=== PATIENT | male | born 1960 | race Caucasian/White ===

== ENCOUNTER → 2016-11-21 | Outpatient (CLI) | payer MEDICARE, BC ==
[2014-11-20 10:50] VITALS: BP 176/97
[~2016-11-21] MED LIST: AEROCHAMBER PLU; AMOXICILLIN 8751 TAB PO; CLINDAMYCIN300 MG PO; CLOBETASOL PROP0.055 TP; COUMADIN6 MG; CYCLOBENZAPRINE10 MG PO; DIFLUCAN200 MG PO; EUTHYROX PO; FUROSEMIDE; HCTZ 25MG25 MG PO; HUMALOG MIX 75/10 ML SC; HUMALOG100 U/ML; LANTUS PEN100 U/ML SQ; LANTUS100 U/ML SC; LEVOTHYROXIN0.125 MG; LEVOTHYROXINE0.2 MG PO; LISINOPRIL20 MG PO; LORATADINE10 MG; MORPHINE 1515 MG/TAB; MORPHINE SULFAT PO; MS CONTIN 115 MG/TAB PO; MSIR15 MG PO; SINGULAIR10 MG PO; VALTREX1 GM; VENTOLIN0.09 MG IH
== END ==
LOC: LAB 10:06
DX: E11.9 Type 2 diabetes mellitus without complications (principal); E03.4 Atrophy of thyroid (acquired); Z12.5 Encounter for screening for malignant neoplasm of prostate; E78.2 Mixed hyperlipidemia; N52.03 Combined arterial insufficiency and corporo-venous occlusive erectile dysfunction; R20.2 Paresthesia of skin; K90.89 Other intestinal malabsorption

== ENCOUNTER → 2016-11-24 | Outpatient (CLI) | payer MEDICARE, BC ==
[2014-11-20 10:50] VITALS: BP 176/97
== END ==
LOC: LAB 11:23
DX: Z12.11 Encounter for screening for malignant neoplasm of colon (principal)

== ENCOUNTER → 2017-04-05 | Outpatient (CLI) | payer MEDICARE, BC ==
[2014-11-20 10:50] VITALS: BP 176/97
== END ==
LOC: LAB 10:34
DX: Z79.01 Long term (current) use of anticoagulants (principal)

== ENCOUNTER → 2017-08-20 | Outpatient (CLI) | payer MEDICARE, BC ==
[2014-11-20 10:50] VITALS: BP 176/97
[2017-08-20 11:22] LABS: BASO # 0.1 (0.02-0.10); EOS # 0.3 (0.04-0.40); EOS % 3.1 % (0.0-4.0); HEMATOCRIT 51.9 % (42.0-52.0); HEMOGLOBIN 17.9 g/dL (13.5-18.0); LYMPH# 1.4 (1.50-4.00); MEAN CELL VOLUME 82 fl (78-100); MEAN CORPUSCULAR HEMOGLOBIN 28 pg (27-31); MEAN CORPUSCULAR HGB CONC 35 g/dL (33-37); MEAN PLATELET VOLUME 9.2 fl (7.4-10.4); MONO # 0.8 (0.20-0.80); PLATELET COUNT 211 K/mm3 (130-400); RED BLOOD COUNT 6.33 M/mm3 (4.20-5.60); RED CELL DISTRIBUTION WIDTH 14.3 % (11.5-14.5); WHITE BLOOD COUNT 9.7 K/mm3 (4.8-10.8)
[2017-08-20 11:31] LABS: ALBUMIN 4.4 g/dL (3.5-5.0); BUN/CREATININE RATIO 15.6 (6.0-26.0); CALCIUM 9.6 mg/dL (8.4-10.2); POTASSIUM 4.5 mmol/L (3.6-5.0); TOTAL BILIRUBIN 1.1 mg/dL (0.2-1.3); TOTAL PROTEIN 8.1 g/dL (6.3-8.2)
[2017-08-20 12:25] LABS: ERYTHROCYTE SEDIMENTATION RATE 3 mm/hr (0-20)
== END ==
LOC: LAB 10:39
PROVIDERS: Internal Medicine
DX: E11.9 Type 2 diabetes mellitus without complications (principal); K90.49 Malabsorption due to intolerance, not elsewhere classified; E03.4 Atrophy of thyroid (acquired); C41.4 Malignant neoplasm of pelvic bones, sacrum and coccyx; R20.2 Paresthesia of skin

== ENCOUNTER → 2017-11-09 | Outpatient (CLI) | payer MEDICARE, BC ==
[2014-11-20 10:50] VITALS: BP 176/97
== END ==
LOC: LAB 10:42
DX: Z85.830 Personal history of malignant neoplasm of bone (principal)

== ENCOUNTER → 2017-12-28 | Outpatient (CLI) | payer MEDICARE, BC ==
[2014-11-20 10:50] VITALS: BP 176/97
== END ==
LOC: RAD 09:45
DX: M18.12 Unilateral primary osteoarthritis of first carpometacarpal joint, left hand (principal); M19.042 Primary osteoarthritis, left hand

== ENCOUNTER → 2018-01-29 | Outpatient (CLI) | payer MEDICARE, BC ==
[2014-11-20 10:50] VITALS: BP 176/97
[2018-01-29 16:27] LABS: ALBUMIN 4.4 g/dL (3.5-5.0); BUN/CREATININE RATIO 13.8 (6.0-26.0); CALCIUM 8.8 mg/dL (8.4-10.2); POTASSIUM 4.4 mmol/L (3.6-5.0); TOTAL BILIRUBIN 0.7 mg/dL (0.2-1.3); TOTAL PROTEIN 8.2 g/dL (6.3-8.2)
== END ==
LOC: LAB 15:50
PROVIDERS: Internal Medicine
DX: E11.9 Type 2 diabetes mellitus without complications (principal); E78.2 Mixed hyperlipidemia

== ENCOUNTER → 2018-03-05 | Outpatient (CLI) | payer MEDICARE, BC ==
[~2018-03-05] VITALS: Ht 180.3 cm; Wt 135.9 kg
[2018-03-05 14:52] VITALS: BP 152/77
== END ==
LOC: AMSURD 14:43
DX: M79.661 Pain in right lower leg (principal); R22.41 Localized swelling, mass and lump, right lower limb; Z86.718 Personal history of other venous thrombosis and embolism; Z51.81 Encounter for therapeutic drug level monitoring
CPT/HCPCS: J1650

== ENCOUNTER → 2018-04-13 | Outpatient (CLI) | payer MEDICARE, BC ==
[2018-03-05 14:52] VITALS: BP 152/77
== END ==
LOC: RAD 09:29
DX: M19.072 Primary osteoarthritis, left ankle and foot (principal); M77.32 Calcaneal spur, left foot

== ENCOUNTER → 2018-06-16 | Emergency (ER) | payer MEDICARE, BC ==
[~2018-06-16] MED LIST changes: +ASPIRIN 81M81 MG/TA2 PO; +ATORVASTATIN CA20 MG PO; +CEPHALEXIN500 M1 PO
[2018-06-16 08:40] VITALS: BP 145/75
[2018-06-16 09:27] LABS: EOS # 0.3 (0.04-0.40); EOS % 4.4 % (0.0-4.0); HEMATOCRIT 44.2 % (42.0-52.0); HEMOGLOBIN 15.3 g/dL (13.5-18.0); LYMPH# 1.2 (1.50-4.00); MEAN CELL VOLUME 85 fl (78-100); MEAN CORPUSCULAR HEMOGLOBIN 29 pg (27-31); MEAN CORPUSCULAR HGB CONC 35 g/dL (33-37); MONO # 0.6 (0.20-0.80); NEU # 5.1 (1.40-6.50); PLATELET COUNT 200 K/mm3 (130-400); RED BLOOD COUNT 5.23 M/mm3 (4.20-5.60); RED CELL DISTRIBUTION WIDTH 14.4 % (11.5-14.5); WHITE BLOOD COUNT 7.3 K/mm3 (4.8-10.8)
[2018-06-16 09:38] LABS: CALCIUM 8.8 mg/dL (8.4-10.2); POTASSIUM 4.3 mmol/L (3.6-5.0); PROTHROMBIN TIME 24.2 SECONDS (9.0-12.0)
== END | disposition home or self-care (01) ==
LOC: ED 08:26
PROVIDERS: Family Medicine
DX: L30.9 Dermatitis, unspecified (principal); Z87.2 Personal history of diseases of the skin and subcutaneous tissue; E11.9 Type 2 diabetes mellitus without complications; Z79.4 Long term (current) use of insulin; Z79.01 Long term (current) use of anticoagulants; Z79.82 Long term (current) use of aspirin; Z79.899 Other long term (current) drug therapy; E03.9 Hypothyroidism, unspecified; I89.0 Lymphedema, not elsewhere classified

== ENCOUNTER → 2018-09-05 | Outpatient (CLI) | payer MEDICARE, BC ==
[2018-06-16 08:40] VITALS: BP 145/75
[2018-09-05 11:38] LABS: BASO # 0.1 (0.02-0.10); EOS # 0.3 (0.04-0.40); EOS % 3.5 % (0.0-4.0); HEMATOCRIT 47.5 % (42.0-52.0); HEMOGLOBIN 16.5 g/dL (13.5-18.0); LYMPH# 1.4 (1.50-4.00); MEAN CELL VOLUME 83 fl (78-100); MEAN CORPUSCULAR HEMOGLOBIN 29 pg (27-31); MEAN CORPUSCULAR HGB CONC 35 g/dL (33-37); MONO # 0.7 (0.20-0.80); NEU # 4.7 (1.40-6.50); PLATELET COUNT 206 K/mm3 (130-400); RED CELL DISTRIBUTION WIDTH 14.8 % (11.5-14.5); WHITE BLOOD COUNT 7.1 K/mm3 (4.8-10.8)
[2018-09-05 11:55] LABS: ALBUMIN 4.2 g/dL (3.5-5.0); CALCIUM 9.4 mg/dL (8.4-10.2); TOTAL BILIRUBIN 0.9 mg/dL (0.2-1.3); TOTAL PROTEIN 7.2 g/dL (6.3-8.2)
[2018-09-05 12:53] LABS: ERYTHROCYTE SEDIMENTATION RATE 3 mm/hr (0-20)
== END ==
LOC: LAB 11:17
PROVIDERS: Internal Medicine
DX: C41.9 Malignant neoplasm of bone and articular cartilage, unspecified (principal); E11.9 Type 2 diabetes mellitus without complications; E78.2 Mixed hyperlipidemia; K90.9 Intestinal malabsorption, unspecified

== ENCOUNTER → 2019-01-13 | Outpatient (CLI) | payer MEDICARE, BC ==
[2018-06-16 08:40] VITALS: BP 145/75
== END ==
LOC: RAD 08:43 → VAS 08:43
DX: M79.604 Pain in right leg (principal); Z86.79 Personal history of other diseases of the circulatory system

== ENCOUNTER 2019-04-15 23:48 | Inpatient (IN) | payer MEDICARE, BC ==
[~2019-04-15] VITALS: Ht 182.9 cm; Wt 136.2 kg
[~2019-04-15 23:48] MED LIST changes: +COUMADIN 6MG6 MG/TAB PO; -COUMADIN6 MG; +NOVOLOG FLEX100 U/ML SQ; +PREDNISOLONE AC15 ML OP; +VALTREX1 GM PO
[2019-04-16] VITALS (7 sets, daily range): BP systolic 110–165; BP diastolic 66–80
[2019-04-16] MEDS ORDERED: NORCO 325 MG-7.1 TA1 PO (01:35)
[2019-04-16 06:29] LABS: BASO # 0.1 (0.02-0.10); EOS # 0.3 (0.04-0.40); EOS % 3.3 % (0.0-4.0); HEMATOCRIT 43.9 % (42.0-52.0); HEMOGLOBIN 14.7 g/dL (13.5-18.0); LYMPH# 1.9 (1.50-4.00); MEAN CELL VOLUME 86 fl (78-100); MEAN CORPUSCULAR HEMOGLOBIN 29 pg (27-31); MEAN CORPUSCULAR HGB CONC 34 g/dL (33-37); MEAN PLATELET VOLUME 9.2 fl (7.4-10.4); MONO # 1.1 (0.20-0.80); NEU # 6.2 (1.40-6.50); PLATELET COUNT 195 K/mm3 (130-400); RED CELL DISTRIBUTION WIDTH 15.2 % (11.5-14.5); WHITE BLOOD COUNT 9.7 K/mm3 (4.8-10.8)
[2019-04-17 03:06] VITALS: BP 109/57
[2019-04-17 06:20] VITALS: BP 128/74
[2019-04-17 06:53] LABS: BASO # 0.1 (0.02-0.10); EOS # 0.4 (0.04-0.40); EOS % 4.2 % (0.0-4.0); HEMATOCRIT 43.8 % (42.0-52.0); HEMOGLOBIN 14.6 g/dL (13.5-18.0); LYMPH# 1.7 (1.50-4.00); MEAN CELL VOLUME 86 fl (78-100); MEAN CORPUSCULAR HEMOGLOBIN 29 pg (27-31); MEAN CORPUSCULAR HGB CONC 33 g/dL (33-37); MEAN PLATELET VOLUME 9.5 fl (7.4-10.4); MONO # 0.8 (0.20-0.80); NEU # 5.7 (1.40-6.50); PLATELET COUNT 164 K/mm3 (130-400); RED CELL DISTRIBUTION WIDTH 15.4 % (11.5-14.5); WHITE BLOOD COUNT 8.6 K/mm3 (4.8-10.8)
[2019-04-17 06:59] LABS: POTASSIUM 4.4 mmol/L (3.5-5.1)
[2019-04-17 07:00] LABS: CALCIUM 8.6 mg/dL (8.3-10.5)
[2019-04-17] MEDS ORDERED: CLEOCIN HCL300 MG PO (09:07)
[2019-04-17 09:47] LABS: PROTHROMBIN TIME 19.1 SECONDS (9.0-12.0)
== END 2019-04-17 11:09 | disposition home or self-care (01) | DRG 603 ==
LOC: MED/SURG 23:48
PROVIDERS: Nurse Practitioner Primary Care; Physician Assistant; ADMIT Nurse Practitioner Family
DX: L03.115 Cellulitis of right lower limb (principal); I89.0 Lymphedema, not elsewhere classified; E11.42 Type 2 diabetes mellitus with diabetic polyneuropathy; E11.65 Type 2 diabetes mellitus with hyperglycemia; I10 Essential (primary) hypertension; G47.33 Obstructive sleep apnea (adult) (pediatric); E03.9 Hypothyroidism, unspecified; Z79.82 Long term (current) use of aspirin; Z79.01 Long term (current) use of anticoagulants; Z79.4 Long term (current) use of insulin; Z86.718 Personal history of other venous thrombosis and embolism; Z86.711 Personal history of pulmonary embolism; Z92.3 Personal history of irradiation; Z86.14 Personal history of Methicillin resistant Staphylococcus aureus infection; Z88.5 Allergy status to narcotic agent; Z88.8 Allergy status to other drugs, medicaments and biological substances
CPT/HCPCS: A4216; J0696; J1815; J7030

== ENCOUNTER → 2019-04-18 | Outpatient (CLI) | payer MEDICARE, BC ==
[~2019-04-18] MED LIST changes: +CLEOCIN HCL300 MG PO; +NORCO 325 MG-7.1 TA1 PO
[2019-04-18 14:57] VITALS: BP 150/71
== END ==
LOC: LAB 15:04
PROVIDERS: Internal Medicine
DX: L03.115 Cellulitis of right lower limb (principal); I82.409 Acute embolism and thrombosis of unspecified deep veins of unspecified lower extremity

== ENCOUNTER 2019-04-19 14:44 | Outpatient (RCR) | payer MEDICARE, BC ==
[2019-04-18 14:57] VITALS: BP 150/71
[~2019-04-19] VITALS: Ht 182.9 cm; Wt 136.2 kg
[2019-04-19 14:53] VITALS: BP 153/73
== END 2019-04-19 15:20 | disposition home or self-care (01) ==
LOC: AMSURD 14:44
DX: L03.115 Cellulitis of right lower limb (principal)
CPT/HCPCS: J0696

== ENCOUNTER → 2019-04-19 | Outpatient (CLI) | payer MEDICARE, BC ==
[2019-04-19 14:53] VITALS: BP 153/73
[2019-04-19 15:39] LABS: PROTHROMBIN TIME 26.6 SECONDS (9.0-12.0)
== END ==
LOC: LAB 14:59
PROVIDERS: Nurse Practitioner Primary Care
DX: L03.115 Cellulitis of right lower limb (principal); I82.409 Acute embolism and thrombosis of unspecified deep veins of unspecified lower extremity

== ENCOUNTER 2019-04-21 15:51 | Emergency (ER) | payer MEDICARE, BC ==
[~2019-04-21] VITALS: Ht 182.9 cm; Wt 135.9 kg
[2019-04-21 16:41] LABS: BASO # 0.1 (0.02-0.10); EOS # 0.6 (0.04-0.40); HEMATOCRIT 49.3 % (42.0-52.0); HEMOGLOBIN 16.9 g/dL (13.5-18.0); LYMPH# 1.9 (1.50-4.00); MEAN CELL VOLUME 84 fl (78-100); MEAN CORPUSCULAR HEMOGLOBIN 29 pg (27-31); MEAN CORPUSCULAR HGB CONC 34 g/dL (33-37); MEAN PLATELET VOLUME 9.3 fl (7.4-10.4); NEU # 7.1 (1.40-6.50); PLATELET COUNT 235 K/mm3 (130-400); RED BLOOD COUNT 5.89 M/mm3 (4.20-5.60); RED CELL DISTRIBUTION WIDTH 15.3 % (11.5-14.5); WHITE BLOOD COUNT 10.8 K/mm3 (4.8-10.8)
[2019-04-21 16:42] LABS: ALBUMIN 4.1 g/dL (3.5-5.0); POTASSIUM 4.1 mmol/L (3.5-5.1)
[2019-04-21 16:44] LABS: CALCIUM 9.4 mg/dL (8.3-10.5)
[2019-04-21 16:45] LABS: TOTAL PROTEIN 7.3 g/dL (6.4-8.3)
[2019-04-21 16:47] LABS: EOS % 5.6 % (0.0-4.0); TOTAL BILIRUBIN 0.6 mg/dL (0.2-1.2)
[2019-04-21 17:55] LABS: ERYTHROCYTE SEDIMENTATION RATE 5 mm/hr (0-20)
[2019-04-21 19:13] VITALS: BP 147/74
== END 2019-04-21 19:13 | disposition short-term general hospital (02) ==
LOC: ED 15:51
PROVIDERS: Nurse Practitioner Primary Care
DX: L03.115 Cellulitis of right lower limb (principal); E11.9 Type 2 diabetes mellitus without complications; I10 Essential (primary) hypertension; E07.9 Disorder of thyroid, unspecified; Z79.4 Long term (current) use of insulin; Z86.711 Personal history of pulmonary embolism; Z86.718 Personal history of other venous thrombosis and embolism; Z98.890 Other specified postprocedural states; Z79.01 Long term (current) use of anticoagulants
CPT/HCPCS: J0696

== ENCOUNTER → 2019-04-28 | Outpatient (CLI) | payer MEDICARE, BC ==
[2019-04-21 19:13] VITALS: BP 147/74
[2019-04-28 18:22] LABS: BASO # 0.1 (0.02-0.10); EOS # 0.4 (0.04-0.40); EOS % 4.4 % (0.0-4.0); HEMATOCRIT 48.4 % (42.0-52.0); HEMOGLOBIN 16.2 g/dL (13.5-18.0); LYMPH# 1.9 (1.50-4.00); MEAN CELL VOLUME 85 fl (78-100); MEAN CORPUSCULAR HEMOGLOBIN 28 pg (27-31); MEAN CORPUSCULAR HGB CONC 34 g/dL (33-37); MEAN PLATELET VOLUME 9.6 fl (7.4-10.4); MONO # 0.9 (0.20-0.80); NEU # 6.2 (1.40-6.50); PLATELET COUNT 251 K/mm3 (130-400); RED BLOOD COUNT 5.72 M/mm3 (4.20-5.60); RED CELL DISTRIBUTION WIDTH 14.9 % (11.5-14.5); WHITE BLOOD COUNT 9.5 K/mm3 (4.8-10.8)
[2019-04-28 18:35] LABS: POTASSIUM 4.4 mmol/L (3.5-5.1)
[2019-04-28 18:37] LABS: CALCIUM 9.6 mg/dL (8.3-10.5)
[2019-04-28 18:38] LABS: TOTAL PROTEIN 7.6 g/dL (6.4-8.3)
[2019-04-28 18:40] LABS: TOTAL BILIRUBIN 0.4 mg/dL (0.2-1.2)
== END ==
LOC: LAB 17:17
PROVIDERS: Internal Medicine
DX: E11.9 Type 2 diabetes mellitus without complications (principal); E78.2 Mixed hyperlipidemia; K90.9 Intestinal malabsorption, unspecified; C41.4 Malignant neoplasm of pelvic bones, sacrum and coccyx

== ENCOUNTER → 2019-08-29 | Outpatient (CLI) | payer MEDICARE, BC ==
[2019-08-29 14:02] LABS: EOS # 0.2 (0.04-0.40); EOS % 2.3 % (0.0-4.0); HEMOGLOBIN 16.1 g/dL (13.5-18.0); LYMPH# 1.4 (1.50-4.00); MEAN CELL VOLUME 87 fl (78-100); MEAN CORPUSCULAR HEMOGLOBIN 29 pg (27-31); MEAN CORPUSCULAR HGB CONC 34 g/dL (33-37); MEAN PLATELET VOLUME 8.9 fl (7.4-10.4); MONO # 0.8 (0.20-0.80); NEU # 7.2 (1.40-6.50); PLATELET COUNT 230 K/mm3 (130-400); RED BLOOD COUNT 5.54 M/mm3 (4.20-5.60); RED CELL DISTRIBUTION WIDTH 13.9 % (11.5-14.5); WHITE BLOOD COUNT 9.6 K/mm3 (4.8-10.8)
[2019-08-29 14:15] LABS: MAGNESIUM 1.73 mg/dL (1.60-2.60)
== END ==
LOC: LAB 13:35
PROVIDERS: Internal Medicine
DX: E11.9 Type 2 diabetes mellitus without complications (principal); E78.2 Mixed hyperlipidemia; K90.9 Intestinal malabsorption, unspecified; C41.4 Malignant neoplasm of pelvic bones, sacrum and coccyx

== ENCOUNTER 2020-02-06 22:49 | Emergency (ER) | payer MEDICARE, BC ==
[2020-02-06] MEDS ORDERED: LASIX20 M1 PO (23:53)
[2020-02-06] MEDS ORDERED: VITAMIN D21250 MCG PO (23:54)
[2020-02-06] MEDS ORDERED: AMOXICILLIN 50500 MG DT (23:54)
[2020-02-07 00:14] VITALS: BP 153/84
== END 2020-02-07 00:16 | disposition home or self-care (01) ==
LOC: ED 22:49
DX: S61.211A Laceration without foreign body of left index finger without damage to nail, initial encounter (principal); E11.9 Type 2 diabetes mellitus without complications; Z85.830 Personal history of malignant neoplasm of bone; Z86.718 Personal history of other venous thrombosis and embolism; Z86.711 Personal history of pulmonary embolism; Z79.4 Long term (current) use of insulin; Z79.82 Long term (current) use of aspirin; W26.8XXA Contact with other sharp object(s), not elsewhere classified, initial encounter; Y92.009 Unspecified place in unspecified non-institutional (private) residence as the place of occurrence of the external cause

== ENCOUNTER → 2020-02-16 | Outpatient (CLI) | payer MEDICARE, BC ==
[2020-02-07 00:14] VITALS: BP 153/84
[~2020-02-16] MED LIST changes: +AMOXICILLIN 50500 MG DT; +LASIX20 M1 PO; +VITAMIN D21250 MCG PO
== END ==
LOC: AMSURD 11:22
DX: Z48.02 Encounter for removal of sutures (principal)

== ENCOUNTER → 2020-02-20 | Outpatient (CLI) | payer MEDICARE, BC ==
[2020-02-07 00:14] VITALS: BP 153/84
[2020-02-20 10:27] LABS: BASO # 0.1 (0.02-0.10); EOS # 0.3 (0.04-0.40); EOS % 3.2 % (0.0-4.0); HEMATOCRIT 48.5 % (42.0-52.0); HEMOGLOBIN 16.1 g/dL (13.5-18.0); LYMPH# 1.5 (1.50-4.00); MEAN CELL VOLUME 87 fl (78-100); MEAN CORPUSCULAR HEMOGLOBIN 29 pg (27-31); MEAN CORPUSCULAR HGB CONC 33 g/dL (33-37); NEU # 5.8 (1.40-6.50); PLATELET COUNT 209 K/mm3 (130-400); RED BLOOD COUNT 5.55 M/mm3 (4.20-5.60); RED CELL DISTRIBUTION WIDTH 14.5 % (11.5-14.5); WHITE BLOOD COUNT 8.6 K/mm3 (4.8-10.8)
[2020-02-20 10:38] LABS: CALCIUM 8.8 mg/dL (8.3-10.5)
[2020-02-20 10:39] LABS: TOTAL PROTEIN 7.4 g/dL (6.2-8.1)
[2020-02-20 10:41] LABS: TOTAL BILIRUBIN 0.6 mg/dL (0.2-1.2)
[2020-02-20 10:46] LABS: MAGNESIUM 1.93 mg/dL (1.60-2.60)
[2020-02-20 11:39] LABS: ERYTHROCYTE SEDIMENTATION RATE 4 mm/hr (0-20)
[2020-02-20 22:31] LABS: TESTOSTERONE 405 ng/dL (221-716)
== END ==
LOC: LAB 09:35
PROVIDERS: Internal Medicine
DX: Z00.00 Encounter for general adult medical examination without abnormal findings (principal); Z12.5 Encounter for screening for malignant neoplasm of prostate; Z12.11 Encounter for screening for malignant neoplasm of colon; K90.9 Intestinal malabsorption, unspecified

== ENCOUNTER → 2020-05-27 | Outpatient (CLI) | payer MEDICARE, BC ==
[2020-05-27 09:52] LABS: ALBUMIN 4.2 g/dL (3.4-4.8)
[2020-05-27 09:53] LABS: POTASSIUM 4.2 mmol/L (3.5-5.1)
[2020-05-27 09:54] LABS: CALCIUM 9.3 mg/dL (8.3-10.5)
[2020-05-27 09:55] LABS: TOTAL PROTEIN 7.4 g/dL (6.2-8.1)
[2020-05-27 09:57] LABS: TOTAL BILIRUBIN 0.6 mg/dL (0.2-1.2)
[2020-05-27 10:01] LABS: MAGNESIUM 1.76 mg/dL (1.60-2.60)
== END ==
LOC: LAB 09:19
PROVIDERS: Internal Medicine
DX: Z00.00 Encounter for general adult medical examination without abnormal findings (principal); E03.4 Atrophy of thyroid (acquired); R73.02 Impaired glucose tolerance (oral)

== ENCOUNTER → 2020-08-12 | Outpatient (CLI) | payer MEDICARE, BC ==
[2020-08-12 09:05] LABS: BASO # 0.1 (0.02-0.10); EOS # 0.2 (0.04-0.40); EOS % 1.5 % (0.0-4.0); HEMATOCRIT 45.4 % (42.0-52.0); HEMOGLOBIN 15.1 g/dL (13.5-18.0); LYMPH# 1.3 (1.50-4.00); MEAN CELL VOLUME 87 fl (78-100); MEAN CORPUSCULAR HEMOGLOBIN 29 pg (27-31); MEAN CORPUSCULAR HGB CONC 33 g/dL (33-37); MEAN PLATELET VOLUME 8.2 fl (7.4-10.4); MONO # 1.2 (0.20-0.80); PLATELET COUNT 410 K/mm3 (130-400); RED BLOOD COUNT 5.25 M/mm3 (4.20-5.60); RED CELL DISTRIBUTION WIDTH 14.1 % (11.5-14.5); WHITE BLOOD COUNT 11.9 K/mm3 (4.8-10.8)
[2020-08-12 09:15] LABS: ALBUMIN 3.9 g/dL (3.4-4.8); POTASSIUM 4.8 mmol/L (3.5-5.1)
[2020-08-12 09:17] LABS: CALCIUM 9.6 mg/dL (8.3-10.5)
[2020-08-12 09:18] LABS: TOTAL PROTEIN 8.3 g/dL (6.2-8.1)
[2020-08-12 09:20] LABS: TOTAL BILIRUBIN 0.5 mg/dL (0.2-1.2)
[2020-08-12 09:24] LABS: NEU # 9.1 (1.40-6.50)
[2020-08-12 10:22] LABS: ERYTHROCYTE SEDIMENTATION RATE 56 mm/hr (0-20)
== END ==
LOC: LAB 08:45
PROVIDERS: Internal Medicine
DX: M79.89 Other specified soft tissue disorders (principal); M25.551 Pain in right hip; R59.0 Localized enlarged lymph nodes; M85.88 Other specified disorders of bone density and structure, other site
CPT/HCPCS: Q9967

== ENCOUNTER → 2020-08-26 | Outpatient (CLI) | payer MEDICARE, BC | LOC: RAD 09:06 | DX: M16.12 Unilateral primary osteoarthritis, left hip (principal); Z96.641 Presence of right artificial hip joint ==

== ENCOUNTER → 2020-10-15 | Outpatient (CLI) | payer MEDICARE, BC ==
[~2020-10-15] MED LIST changes: +MORGIDOX 1X100100 MG PO; +VITAMIN C PUR1000 MG PO; +WARFARIN SOD5 MG PO; +ZINC50 M3 PO
== END ==
LOC: LAB 11:19
DX: Z20.822 Contact with and (suspected) exposure to COVID-19 (principal)

== ENCOUNTER → 2020-11-01 | Outpatient (CLI) | payer MEDICARE, BC ==
[2020-11-01 14:19] VITALS: BP 128/64
== END ==
LOC: AMSURD 09:41 → RAD 09:41
DX: R33.9 Retention of urine, unspecified (principal)

== ENCOUNTER → 2020-11-04 | Outpatient (CLI) | payer MEDICARE, BC ==
[2020-11-01 14:19] VITALS: BP 128/64
== END ==
LOC: LAB 15:05
DX: K90.9 Intestinal malabsorption, unspecified (principal)

== ENCOUNTER 2021-03-15 19:56 | Emergency (ER) | payer MEDICARE, BC ==
[~2021-03-15 19:56] MED LIST changes: -MORGIDOX 1X100100 MG PO; -VITAMIN C PUR1000 MG PO; -WARFARIN SOD5 MG PO; -ZINC50 M3 PO
[2021-03-15] MEDS ORDERED: WARFARIN SOD5 MG PO (20:13)
[2021-03-15] MEDS ORDERED: MS CONTIN 115 MG/TAB PO (20:14)
[2021-03-15] MEDS ORDERED: ZINC50 M3 PO (20:15)
[2021-03-15] MEDS ORDERED: VITAMIN C PUR1000 MG PO (20:15)
[2021-03-15 21:02] LABS: BASO # 0.07 (0.02-0.10); HEMATOCRIT 40.6 % (42.0-52.0); HEMOGLOBIN 12.9 g/dL (13.5-18.0); LYMPH# 0.88 (1.50-4.00); MEAN CELL VOLUME 85 fl (78-100); MEAN CORPUSCULAR HEMOGLOBIN 27 pg (27-31); MEAN CORPUSCULAR HGB CONC 32 g/dL (33-37); MEAN PLATELET VOLUME 8.5 fl (7.4-10.4); MONO # 0.64 (0.20-0.80); NEU # 6.68 (1.40-6.50); PLATELET COUNT 263 K/mm3 (130-400); RED CELL DISTRIBUTION WIDTH 15.1 % (11.5-14.5); WHITE BLOOD COUNT 8.3 K/mm3 (4.8-10.8)
[2021-03-15 21:13] LABS: ALBUMIN 3.6 g/dL (3.4-4.8); POTASSIUM 4.4 mmol/L (3.5-5.1)
[2021-03-15 21:14] LABS: CALCIUM 9.2 mg/dL (8.3-10.5)
[2021-03-15 21:17] LABS: TOTAL BILIRUBIN 0.3 mg/dL (0.2-1.2)
[2021-03-15 21:29] LABS: URINE APPEARANCE CLEAR; URINE BILIRUBIN NEGATIVE (NEGATIVE); URINE COLOR YELLOW; URINE GLUCOSE NEGATIVE (NEGATIVE); URINE KETONE NEGATIVE (NEGATIVE); URINE NITRATE NEGATIVE (NEGATIVE); URINE PROTEIN(semi-quant) NEGATIVE (NEGATIVE); URINE UROBILINOGEN NORMAL (NORMAL)
[2021-03-15 21:30] LABS: URINE BLOOD TRACE (NEGATIVE); URINE LEUKOCYTE ESTERASE NEGATIVE (NEGATIVE); URINE WBC 0-1 /hpf (0-3)
[2021-03-15] MEDS ORDERED: MORGIDOX 1X100100 MG PO (22:18)
[2021-03-15 22:54] VITALS: BP 146/77
== END 2021-03-15 22:54 | disposition home or self-care (01) ==
LOC: ED 19:56
PROVIDERS: Nurse Practitioner
DX: L03.90 Cellulitis, unspecified (principal); E11.9 Type 2 diabetes mellitus without complications; I10 Essential (primary) hypertension; E03.9 Hypothyroidism, unspecified; Z79.4 Long term (current) use of insulin; Z79.899 Other long term (current) drug therapy; Z79.890 Hormone replacement therapy
CPT/HCPCS: J0696; J7030

== ENCOUNTER 2021-03-19 18:15 | Emergency (ER) | payer MEDICARE, BC ==
[~2021-03-19] VITALS: Ht 175.3 cm; Wt 135.9 kg
[~2021-03-19 18:15] MED LIST changes: +MORGIDOX 1X100100 MG PO; +VITAMIN C PUR1000 MG PO; +WARFARIN SOD5 MG PO; +ZINC50 M3 PO
[2021-03-19 19:25] LABS: BASO # 0.06 (0.02-0.10); EOS # 0.01 (0.04-0.40); EOS % 0.1 % (0.0-4.0); HEMATOCRIT 38.4 % (42.0-52.0); HEMOGLOBIN 12.6 g/dL (13.5-18.0); LYMPH# 1.37 (1.50-4.00); MEAN CELL VOLUME 84 fl (78-100); MEAN CORPUSCULAR HEMOGLOBIN 28 pg (27-31); MEAN CORPUSCULAR HGB CONC 33 g/dL (33-37); MEAN PLATELET VOLUME 8.5 fl (7.4-10.4); MONO # 0.95 (0.20-0.80); NEU # 6.81 (1.40-6.50); PLATELET COUNT 268 K/mm3 (130-400); RED BLOOD COUNT 4.58 M/mm3 (4.20-5.60); RED CELL DISTRIBUTION WIDTH 15.2 % (11.5-14.5); WHITE BLOOD COUNT 9.3 K/mm3 (4.8-10.8)
[2021-03-19 19:39] LABS: POTASSIUM 3.8 mmol/L (3.5-5.1)
[2021-03-19 19:40] LABS: CALCIUM 8.9 mg/dL (8.3-10.5)
[2021-03-19 20:43] LABS: PROTHROMBIN TIME 15.4 SECONDS (9.0-12.0)
[2021-03-19 21:51] VITALS: BP 145/74
== END 2021-03-19 21:51 | disposition home or self-care (01) ==
LOC: ED 18:15
PROVIDERS: Family Medicine
DX: L03.311 Cellulitis of abdominal wall (principal); I89.0 Lymphedema, not elsewhere classified; I10 Essential (primary) hypertension; E11.9 Type 2 diabetes mellitus without complications; Z85.830 Personal history of malignant neoplasm of bone; Z79.4 Long term (current) use of insulin; Z79.899 Other long term (current) drug therapy

== ENCOUNTER → 2021-03-21 | Outpatient (CLI) | payer MEDICARE, BC | LOC: RAD 14:01 | DX: I89.0 Lymphedema, not elsewhere classified (principal); L03.90 Cellulitis, unspecified ==

== ENCOUNTER → 2021-04-06 | Outpatient (CLI) | payer MEDICARE, BC ==
[2021-04-06 15:11] LABS: BASO # 0.05 (0.02-0.10); HEMATOCRIT 41.5 % (42.0-52.0); HEMOGLOBIN 13.2 g/dL (13.5-18.0); LYMPH# 1.03 (1.50-4.00); MEAN CELL VOLUME 84 fl (78-100); MEAN CORPUSCULAR HEMOGLOBIN 27 pg (27-31); MEAN CORPUSCULAR HGB CONC 32 g/dL (33-37); MEAN PLATELET VOLUME 8.3 fl (7.4-10.4); MONO # 0.77 (0.20-0.80); NEU # 6.77 (1.40-6.50); PLATELET COUNT 268 K/mm3 (130-400); RED BLOOD COUNT 4.97 M/mm3 (4.20-5.60); RED CELL DISTRIBUTION WIDTH 15.3 % (11.5-14.5); WHITE BLOOD COUNT 8.7 K/mm3 (4.8-10.8)
[2021-04-06 15:31] LABS: POTASSIUM 4.4 mmol/L (3.5-5.1)
[2021-04-06 15:32] LABS: CALCIUM 9.6 mg/dL (8.3-10.5)
[2021-04-06 16:24] LABS: ERYTHROCYTE SEDIMENTATION RATE 69 mm/hr (0-20)
== END ==
LOC: LAB 14:59
PROVIDERS: Family Medicine
DX: L02.91 Cutaneous abscess, unspecified (principal)

== ENCOUNTER → 2021-05-26 | Outpatient (CLI) | payer MEDICARE, BC ==
[2021-05-26 13:00] LABS: BASO # 0.08 K/mm3 (0.02-0.10); HEMATOCRIT 41.5 % (42.0-52.0); HEMOGLOBIN 13.3 g/dL (13.5-18.0); LYMPH# 1.19 K/mm3 (1.50-4.00); MEAN CELL VOLUME 83 fl (78-100); MEAN CORPUSCULAR HEMOGLOBIN 27 pg (27-31); MEAN CORPUSCULAR HGB CONC 32 g/dL (33-37); MEAN PLATELET VOLUME 8.2 fl (7.4-10.4); MONO # 0.72 K/mm3 (0.20-0.80); NEU # 6.29 K/mm3 (1.40-6.50); PLATELET COUNT 254 K/mm3 (130-400); RED BLOOD COUNT 4.99 M/mm3 (4.20-5.60); RED CELL DISTRIBUTION WIDTH 15.8 % (11.5-14.5); WHITE BLOOD COUNT 8.3 K/mm3 (4.8-10.8)
[2021-05-26 13:16] LABS: ALBUMIN 3.7 g/dL (3.4-4.8); POTASSIUM 5.2 mmol/L (3.5-5.1)
[2021-05-26 13:17] LABS: CALCIUM 9.7 mg/dL (8.3-10.5)
[2021-05-26 13:19] LABS: TOTAL PROTEIN 7.6 g/dL (6.2-8.1)
[2021-05-26 13:20] LABS: TOTAL BILIRUBIN 0.3 mg/dL (0.2-1.2)
[2021-05-26 14:29] LABS: ERYTHROCYTE SEDIMENTATION RATE 49 mm/hr (0-20)
== END ==
LOC: LAB 12:41
PROVIDERS: Internal Medicine
DX: K90.9 Intestinal malabsorption, unspecified (principal); E78.2 Mixed hyperlipidemia; E11.9 Type 2 diabetes mellitus without complications; L02.211 Cutaneous abscess of abdominal wall

== ENCOUNTER → 2021-06-09 | Outpatient (CLI) | payer MEDICARE, BC ==
[2021-06-09 13:01] LABS: URINE APPEARANCE CLEAR; URINE BILIRUBIN NEGATIVE (NEGATIVE); URINE BLOOD TRACE (NEGATIVE); URINE COLOR LIGHT YELLOW; URINE GLUCOSE NEGATIVE (NEGATIVE); URINE KETONE TR (NEGATIVE); URINE LEUKOCYTE ESTERASE NEGATIVE (NEGATIVE); URINE MUCUS PRESENT (NOT PRESENT); URINE NITRATE NEGATIVE (NEGATIVE); URINE PROTEIN(semi-quant) TRACE mg/dL (NEGATIVE); URINE UROBILINOGEN NORMAL (NORMAL); URINE WBC 0-1 /hpf (0-3)
== END ==
LOC: LAB 11:20
PROVIDERS: Internal Medicine
DX: N39.0 Urinary tract infection, site not specified (principal)

== ENCOUNTER → 2021-06-13 | Outpatient (CLI) | payer MEDICARE, BC | LOC: LAB 10:58 | PROVIDERS: Surgery | DX: L02.211 Cutaneous abscess of abdominal wall (principal) ==

== ENCOUNTER → 2021-06-14 | Outpatient (CLI) | payer MEDICARE, BC | LOC: RAD 09:36 | DX: L02.211 Cutaneous abscess of abdominal wall (principal); R59.0 Localized enlarged lymph nodes ==

== ENCOUNTER → 2021-08-02 | Outpatient (CLI) | payer MEDICARE, BC ==
[2021-08-02 15:50] LABS: BASO # 0.09 K/mm3 (0.02-0.10); HEMATOCRIT 38.5 % (42.0-52.0); HEMOGLOBIN 12.5 g/dL (13.5-18.0); LYMPH# 1.68 K/mm3 (1.50-4.00); MEAN CELL VOLUME 85 fl (78-100); MEAN CORPUSCULAR HEMOGLOBIN 28 pg (27-31); MEAN CORPUSCULAR HGB CONC 33 g/dL (33-37); MEAN PLATELET VOLUME 8.6 fl (7.4-10.4); MONO # 0.86 K/mm3 (0.20-0.80); NEU # 7.24 K/mm3 (1.40-6.50); PLATELET COUNT 284 K/mm3 (130-400); RED BLOOD COUNT 4.55 M/mm3 (4.20-5.60); RED CELL DISTRIBUTION WIDTH 16.2 % (11.5-14.5); WHITE BLOOD COUNT 9.9 K/mm3 (4.8-10.8)
[2021-08-02 16:00] LABS: CALCIUM 9.5 mg/dL (8.3-10.5)
[2021-08-02 16:08] LABS: PROTHROMBIN TIME 13.6 SECONDS (9.0-12.0)
== END ==
LOC: LAB 15:37
PROVIDERS: Internal Medicine
DX: E11.9 Type 2 diabetes mellitus without complications (principal)

== ENCOUNTER → 2021-11-03 | Outpatient (CLI) | payer MEDICARE, BC ==
[2021-11-03 14:50] LABS: BASO # 0.09 K/mm3 (0.02-0.10); EOS # 0.05 K/mm3 (0.04-0.40); EOS % 0.5 % (0.0-4.0); HEMATOCRIT 37.7 % (42.0-52.0); LYMPH# 1.18 K/mm3 (1.50-4.00); MEAN CELL VOLUME 83 fl (78-100); MEAN CORPUSCULAR HEMOGLOBIN 26 pg (27-31); MEAN CORPUSCULAR HGB CONC 32 g/dL (33-37); MEAN PLATELET VOLUME 9.1 fl (7.4-10.4); MONO # 0.69 K/mm3 (0.20-0.80); NEU # 9.02 K/mm3 (1.40-6.50); PLATELET COUNT 309 K/mm3 (130-400); RED BLOOD COUNT 4.54 M/mm3 (4.20-5.60); RED CELL DISTRIBUTION WIDTH 14.2 % (11.5-14.5); WHITE BLOOD COUNT 11.1 K/mm3 (4.8-10.8)
[2021-11-03 15:02] LABS: ALBUMIN 3.9 g/dL (3.4-4.8); POTASSIUM 4.3 mmol/L (3.5-5.1)
[2021-11-03 15:03] LABS: CALCIUM 9.6 mg/dL (8.3-10.5)
[2021-11-03 15:04] LABS: TOTAL PROTEIN 7.6 g/dL (6.2-8.1)
[2021-11-03 15:06] LABS: TOTAL BILIRUBIN 0.4 mg/dL (0.2-1.2)
[2021-11-03 16:12] LABS: ERYTHROCYTE SEDIMENTATION RATE 42 mm/hr (0-20)
== END ==
LOC: LAB 14:20
PROVIDERS: Internal Medicine
DX: E11.9 Type 2 diabetes mellitus without complications (principal); L02.211 Cutaneous abscess of abdominal wall; E78.2 Mixed hyperlipidemia; K21.9 Gastro-esophageal reflux disease without esophagitis; N17.8 Other acute kidney failure; N13.9 Obstructive and reflux uropathy, unspecified

== ENCOUNTER 2021-12-26 21:08 | Observation (INO) | payer MEDICARE, BC ==
[~2021-12-26] VITALS: Ht 182.9 cm; Wt 122.7 kg
[~2021-12-26 21:08] MED LIST changes: +NORCO 10-325 T1 EACH PO; -NORCO 325 MG-7.1 TA1 PO
[2021-12-26] MEDS ORDERED: ATORVASTATIN CA20 MG PO (22:05)
[2021-12-26] MEDS ORDERED: NORVASC 10MG10 MG PO (22:06)
[2021-12-26 22:22] LABS: BASO # 0.04 K/mm3 (0.02-0.10); HEMATOCRIT 39.3 % (42.0-52.0); HEMOGLOBIN 12.2 g/dL (13.5-18.0); LYMPH# 0.71 K/mm3 (1.50-4.00); MEAN CELL VOLUME 78 fl (78-100); MEAN CORPUSCULAR HEMOGLOBIN 24 pg (27-31); MEAN CORPUSCULAR HGB CONC 31 g/dL (33-37); MEAN PLATELET VOLUME 8.9 fl (7.4-10.4); MONO # 0.71 K/mm3 (0.20-0.80); NEU # 9.06 K/mm3 (1.40-6.50); PLATELET COUNT 284 K/mm3 (130-400); RED BLOOD COUNT 5.04 M/mm3 (4.20-5.60); RED CELL DISTRIBUTION WIDTH 14.5 % (11.5-14.5); WHITE BLOOD COUNT 10.5 K/mm3 (4.8-10.8)
[2021-12-26 22:27] LABS: ALBUMIN 3.8 g/dL (3.4-4.8); POTASSIUM 4.1 mmol/L (3.5-5.1)
[2021-12-26 22:30] LABS: TOTAL PROTEIN 7.2 g/dL (6.2-8.1)
[2021-12-26 22:31] LABS: TOTAL BILIRUBIN 0.6 mg/dL (0.2-1.2)
[2021-12-26 22:42] LABS: PROTHROMBIN TIME 17.2 SECONDS (9.0-12.0)
[2021-12-26 23:12] LABS: PH-URINE 5.5 (5.0 - 8.0); URINE APPEARANCE CLOUDY; URINE BILIRUBIN NEGATIVE (NEGATIVE); URINE BLOOD 250 ery/uL (NEGATIVE); URINE COLOR LT YELLOW; URINE GLUCOSE NEGATIVE (NEGATIVE); URINE KETONE 1+ (NEGATIVE); URINE LEUKOCYTE ESTERASE 2+ (NEGATIVE); URINE NITRATE POSITIVE (NEGATIVE); URINE PROTEIN(semi-quant) 1+ (NEGATIVE); URINE UROBILINOGEN NORMAL (NORMAL); URINE WBC >50 /hpf (0-3)
[2021-12-27 01:51] VITALS: BP 155/69
[2021-12-27 06:15] VITALS: BP 162/69
[2021-12-27 07:47] LABS: BASO # 0.04 K/mm3 (0.02-0.10); EOS # 0.02 K/mm3 (0.04-0.40); EOS % 0.3 % (0.0-4.0); HEMATOCRIT 35.4 % (42.0-52.0); HEMOGLOBIN 10.8 g/dL (13.5-18.0); LYMPH# 1.55 K/mm3 (1.50-4.00); MEAN CELL VOLUME 86 fl (78-100); MEAN CORPUSCULAR HEMOGLOBIN 26 pg (27-31); MEAN CORPUSCULAR HGB CONC 31 g/dL (33-37); MEAN PLATELET VOLUME 9.8 fl (7.4-10.4); MONO # 0.72 K/mm3 (0.20-0.80); NEU # 5.41 K/mm3 (1.40-6.50); PLATELET COUNT 287 K/mm3 (130-400); RED BLOOD COUNT 4.11 M/mm3 (4.20-5.60); RED CELL DISTRIBUTION WIDTH 16.9 % (11.5-14.5); WHITE BLOOD COUNT 7.8 K/mm3 (4.8-10.8)
[2021-12-27 07:51] LABS: POTASSIUM 3.6 mmol/L (3.5-5.1)
[2021-12-27 07:52] LABS: CALCIUM 8.6 mg/dL (8.3-10.5)
[2021-12-27 09:27] VITALS: BP 113/52
[2021-12-27 10:54] LABS: PROTHROMBIN TIME 15.3 SECONDS (9.0-12.0)
[2021-12-27 13:04] VITALS: BP 141/68
[2021-12-27] MEDS ORDERED: CEFDINIR300 MG PO (13:44)
== END 2021-12-27 16:00 | disposition home or self-care (01) ==
LOC: ED 21:08 → MED/SURG 23:35
PROVIDERS: ADMIT Nurse Practitioner
DX: N39.0 Urinary tract infection, site not specified (principal); D68.8 Other specified coagulation defects; Z20.822 Contact with and (suspected) exposure to COVID-19; E11.9 Type 2 diabetes mellitus without complications; Z79.4 Long term (current) use of insulin; Z79.82 Long term (current) use of aspirin; Z79.01 Long term (current) use of anticoagulants; Z96.0 Presence of urogenital implants
CPT/HCPCS: G0378; J0696; J7030

== ENCOUNTER → 2022-01-03 | Outpatient (CLI) | payer MEDICARE, BC ==
[~2022-01-03] MED LIST changes: +CEFDINIR300 MG PO; +NORVASC 10MG10 MG PO
[2022-01-03 16:36] LABS: BASO # 0.09 K/mm3 (0.02-0.10); HEMATOCRIT 38.3 % (42.0-52.0); LYMPH# 1.44 K/mm3 (1.50-4.00); MEAN CELL VOLUME 77 fl (78-100); MEAN CORPUSCULAR HEMOGLOBIN 24 pg (27-31); MEAN CORPUSCULAR HGB CONC 31 g/dL (33-37); MEAN PLATELET VOLUME 8.7 fl (7.4-10.4); MONO # 0.89 K/mm3 (0.20-0.80); NEU # 8.13 K/mm3 (1.40-6.50); PLATELET COUNT 354 K/mm3 (130-400); RED CELL DISTRIBUTION WIDTH 14.8 % (11.5-14.5); WHITE BLOOD COUNT 10.7 K/mm3 (4.8-10.8)
[2022-01-03 17:03] LABS: POTASSIUM 4.4 mmol/L (3.5-5.1)
[2022-01-03 17:04] LABS: CALCIUM 9.6 mg/dL (8.3-10.5)
[2022-01-03 17:05] LABS: TOTAL PROTEIN 8.1 g/dL (6.2-8.1)
[2022-01-03 17:07] LABS: TOTAL BILIRUBIN 0.3 mg/dL (0.2-1.2)
[2022-01-03 17:29] LABS: URINE APPEARANCE HAZY; URINE BILIRUBIN NEGATIVE (NEGATIVE); URINE BLOOD 250 ery/uL (NEGATIVE); URINE COLOR YELLOW; URINE GLUCOSE NEGATIVE (NEGATIVE); URINE KETONE NEGATIVE (NEGATIVE); URINE LEUKOCYTE ESTERASE TRACE (NEGATIVE); URINE MUCUS PRESENT (NOT PRESENT); URINE NITRATE NEGATIVE (NEGATIVE); URINE PROTEIN(semi-quant) 3+ (NEGATIVE); URINE UROBILINOGEN NORMAL (NORMAL)
[2022-01-03 18:08] LABS: ERYTHROCYTE SEDIMENTATION RATE 55 mm/hr (0-20)
== END ==
LOC: LAB 15:48
PROVIDERS: Internal Medicine
DX: L02.211 Cutaneous abscess of abdominal wall (principal); N13.9 Obstructive and reflux uropathy, unspecified; E11.9 Type 2 diabetes mellitus without complications; E78.2 Mixed hyperlipidemia; K21.9 Gastro-esophageal reflux disease without esophagitis; N17.8 Other acute kidney failure

== ENCOUNTER → 2022-01-13 | Outpatient (CLI) | payer MEDICARE, BC ==
[2022-01-13 09:33] LABS: BASO # 0.04 K/mm3 (0.02-0.10); EOS # 0.01 K/mm3 (0.04-0.40); EOS % 0.1 % (0.0-4.0); HEMATOCRIT 38.4 % (42.0-52.0); MEAN CELL VOLUME 76 fl (78-100); MEAN CORPUSCULAR HEMOGLOBIN 24 pg (27-31); MEAN CORPUSCULAR HGB CONC 31 g/dL (33-37); MEAN PLATELET VOLUME 8.7 fl (7.4-10.4); MONO # 0.64 K/mm3 (0.20-0.80); NEU # 6.18 K/mm3 (1.40-6.50); PLATELET COUNT 290 K/mm3 (130-400); RED BLOOD COUNT 5.07 M/mm3 (4.20-5.60); RED CELL DISTRIBUTION WIDTH 14.7 % (11.5-14.5); WHITE BLOOD COUNT 7.8 K/mm3 (4.8-10.8)
[2022-01-13 09:42] LABS: ALBUMIN 3.8 g/dL (3.4-4.8)
[2022-01-13 09:43] LABS: CALCIUM 9.3 mg/dL (8.3-10.5)
[2022-01-13 09:45] LABS: TOTAL PROTEIN 7.6 g/dL (6.2-8.1)
[2022-01-13 09:46] LABS: TOTAL BILIRUBIN 0.4 mg/dL (0.2-1.2)
[2022-01-13 10:29] LABS: URINE APPEARANCE HAZY; URINE COLOR YELLOW; URINE PROTEIN(semi-quant) 1+ (NEGATIVE)
[2022-01-13 10:30] LABS: URINE BILIRUBIN NEGATIVE (NEGATIVE); URINE BLOOD 250 ery/uL (NEGATIVE); URINE GLUCOSE NEGATIVE (NEGATIVE); URINE KETONE NEGATIVE (NEGATIVE); URINE LEUKOCYTE ESTERASE NEGATIVE (NEGATIVE); URINE NITRATE NEGATIVE (NEGATIVE); URINE UROBILINOGEN NORMAL (NORMAL)
[2022-01-13 10:32] LABS: URINE WBC 0-1 /hpf (0-3)
[2022-01-13 10:52] LABS: ERYTHROCYTE SEDIMENTATION RATE 39 mm/hr (0-20)
== END ==
LOC: LAB 09:07
PROVIDERS: Internal Medicine
DX: N39.0 Urinary tract infection, site not specified (principal)

== ENCOUNTER → 2022-02-01 | Outpatient (CLI) | payer MEDICARE, BC ==
[2022-02-01 12:38] LABS: URINE APPEARANCE HAZY; URINE COLOR YELLOW
[2022-02-01 12:39] LABS: PH-URINE 6.5 (5.0 - 8.0); URINE GLUCOSE NEGATIVE (NEGATIVE); URINE KETONE NEGATIVE (NEGATIVE); URINE PROTEIN(semi-quant) 1+ (NEGATIVE)
[2022-02-01 12:46] LABS: URINE BILIRUBIN NEGATIVE (NEGATIVE); URINE UROBILINOGEN NORMAL (NORMAL)
[2022-02-01 12:47] LABS: URINE BLOOD 50 ery/uL (NEGATIVE); URINE NITRATE NEGATIVE (NEGATIVE)
[2022-02-01 12:48] LABS: URINE LEUKOCYTE ESTERASE 2+ (NEGATIVE); URINE WBC >50 /hpf (0-3)
== END ==
LOC: LAB 08:58
PROVIDERS: Internal Medicine
DX: N39.0 Urinary tract infection, site not specified (principal)

== ENCOUNTER → 2022-02-16 | Outpatient (CLI) | payer MEDICARE, BC ==
[2022-02-16 16:38] LABS: BASO # 0.06 K/mm3 (0.02-0.10); HEMATOCRIT 39.1 % (42.0-52.0); HEMOGLOBIN 12.1 g/dL (13.5-18.0); LYMPH# 1.36 K/mm3 (1.50-4.00); MEAN CELL VOLUME 74 fl (78-100); MEAN CORPUSCULAR HEMOGLOBIN 23 pg (27-31); MEAN CORPUSCULAR HGB CONC 31 g/dL (33-37); MEAN PLATELET VOLUME 8.7 fl (7.4-10.4); MONO # 0.81 K/mm3 (0.20-0.80); NEU # 6.65 K/mm3 (1.40-6.50); PLATELET COUNT 278 K/mm3 (130-400); RED BLOOD COUNT 5.27 M/mm3 (4.20-5.60); RED CELL DISTRIBUTION WIDTH 16.3 % (11.5-14.5); WHITE BLOOD COUNT 8.9 K/mm3 (4.8-10.8)
[2022-02-16 16:48] LABS: ALBUMIN 3.8 g/dL (3.4-4.8)
[2022-02-16 16:49] LABS: POTASSIUM 4.3 mmol/L (3.5-5.1)
[2022-02-16 16:50] LABS: CALCIUM 9.1 mg/dL (8.3-10.5)
[2022-02-16 16:51] LABS: TOTAL PROTEIN 7.6 g/dL (6.2-8.1)
[2022-02-16 16:53] LABS: TOTAL BILIRUBIN 0.4 mg/dL (0.2-1.2)
== END ==
LOC: LAB 16:26
PROVIDERS: Internal Medicine Infectious Disease
DX: M86.651 Other chronic osteomyelitis, right thigh (principal)

== ENCOUNTER → 2022-03-29 | Outpatient (CLI) | payer MEDICARE, BC ==
[2022-03-29 09:52] LABS: BASO # 0.06 K/mm3 (0.02-0.10); EOS # 0.02 K/mm3 (0.04-0.40); EOS % 0.2 % (0.0-4.0); HEMATOCRIT 41.5 % (42.0-52.0); HEMOGLOBIN 12.7 g/dL (13.5-18.0); LYMPH# 1.15 K/mm3 (1.50-4.00); MEAN CELL VOLUME 75 fl (78-100); MEAN CORPUSCULAR HEMOGLOBIN 23 pg (27-31); MEAN CORPUSCULAR HGB CONC 31 g/dL (33-37); MEAN PLATELET VOLUME 8.8 fl (7.4-10.4); MONO # 0.62 K/mm3 (0.20-0.80); NEU # 6.57 K/mm3 (1.40-6.50); PLATELET COUNT 254 K/mm3 (130-400); RED BLOOD COUNT 5.57 M/mm3 (4.20-5.60); WHITE BLOOD COUNT 8.4 K/mm3 (4.8-10.8)
[2022-03-29 10:02] LABS: ALBUMIN 3.7 g/dL (3.4-4.8); POTASSIUM 4.1 mmol/L (3.5-5.1)
[2022-03-29 10:03] LABS: CALCIUM 9.4 mg/dL (8.3-10.5)
[2022-03-29 10:04] LABS: TOTAL PROTEIN 7.3 g/dL (6.2-8.1)
[2022-03-29 10:06] LABS: TOTAL BILIRUBIN 0.5 mg/dL (0.2-1.2)
== END ==
LOC: LAB 09:36
PROVIDERS: Internal Medicine
DX: E03.4 Atrophy of thyroid (acquired) (principal); E78.2 Mixed hyperlipidemia; E11.9 Type 2 diabetes mellitus without complications; K90.9 Intestinal malabsorption, unspecified

== ENCOUNTER → 2022-04-06 | Outpatient (CLI) | payer MEDICARE, BC | LOC: RAD 10:14 | DX: M25.151 Fistula, right hip (principal); M25.551 Pain in right hip; Z85.830 Personal history of malignant neoplasm of bone ==

== ENCOUNTER → 2022-06-15 | Outpatient (CLI) | payer MEDICARE, BC ==
[2022-06-15 12:38] LABS: BASO # 0.04 K/mm3 (0.02-0.10); EOS # 0.01 K/mm3 (0.04-0.40); EOS % 0.1 % (0.0-4.0); HEMATOCRIT 42.3 % (42.0-52.0); HEMOGLOBIN 13.4 g/dL (13.5-18.0); LYMPH# 1.69 K/mm3 (1.50-4.00); MEAN CELL VOLUME 74 fl (78-100); MEAN CORPUSCULAR HEMOGLOBIN 24 pg (27-31); MEAN CORPUSCULAR HGB CONC 32 g/dL (33-37); MEAN PLATELET VOLUME 8.6 fl (7.4-10.4); MONO # 1.01 K/mm3 (0.20-0.80); NEU # 8.22 K/mm3 (1.40-6.50); PLATELET COUNT 302 K/mm3 (130-400); RED BLOOD COUNT 5.69 M/mm3 (4.20-5.60); RED CELL DISTRIBUTION WIDTH 17.7 % (11.5-14.5)
[2022-06-15 12:49] LABS: ALBUMIN 3.8 g/dL (3.4-4.8); POTASSIUM 4.2 mmol/L (3.5-5.1)
[2022-06-15 12:50] LABS: CALCIUM 9.4 mg/dL (8.3-10.5)
[2022-06-15 12:52] LABS: TOTAL PROTEIN 7.5 g/dL (6.2-8.1)
[2022-06-15 12:53] LABS: TOTAL BILIRUBIN 0.6 mg/dL (0.2-1.2)
[2022-06-15 14:34] LABS: ERYTHROCYTE SEDIMENTATION RATE 35 mm/hr (0-20)
== END ==
LOC: LAB 12:22
PROVIDERS: Nurse Practitioner
DX: R60.0 Localized edema (principal)